=== PATIENT | male | born 1990 | race African-American/Black ===

== ENCOUNTER 2020-09-13 10:32 | Emergency (ER) | payer MEDICARE, OTHER ==
[~2020-09-13] VITALS: Ht 177.8 cm; Wt 72.6 kg
--- NOTE | 2020-09-13 10:32 | NUR ---
PT BIB SELF C/O "I FEEL DEPRESSED AND I NEED A PLACE THAT CAN HELP ME FOR REHABILITAION" PT IS AAOX4, NOT IN RESPIRATORY DISTRESS, V/S STABLE, KEPT RESTED AND COMFORTABLE. WILL CONTINUE TO MONITOR.
--- NOTE | 2020-09-13 10:44 | NUR ---
URINAL GIVEN BUT UNABLE TO PROVIDE URINE SPECIMEN THIS TIME.
--- NOTE | 2020-09-13 10:47 | NUR ---
AT BEDSIDE FOR EVAL.
--- NOTE | 2020-09-13 11:01 | NUR ---
ER PHLEB AT BEDSIDE FOR BLOOD DRAW.
[2020-09-13 11:17] LABS: BASOPHILS % (AUTO) 0.4 % (0.0-2.0); EOSINOPHILS % (AUTO) 0.9 % (0.0-6.0); HEMATOCRIT 38 % (39-51); HEMOGLOBIN 12.7 g/dL (13.5-17.5); LYMPHOCYTES # (AUTO) 1.8 /CMM (0.8-4.8); LYMPHOCYTES % (AUTO) 19.8 % (20.0-44.0); MEAN CORPUSCULAR HGB CONC 34 g/dl (31.0-36.0); MEAN CORPUSCULAR VOLUME 89 fL (80-96); MONOCYTES # (AUTO) 0.7 /CMM (0.1-1.30); NEUTROPHILS # (AUTO) 6.3 /CMM (1.8-8.9); NEUTROPHILS % (AUTO) 70.9 % (43.0-81.0); PLATELET COUNT (AUTO) 429 /CMM (150-450); RED BLOOD CELL COUNT(AUTO) 4.24 MIL/uL (4.5-6.0); WHITE BLOOD COUNT (AUTO) 8.9 K/uL (4.3-11.0)
[2020-09-13 11:32] LABS: ALANINE AMINOTRANSFERASE 24 U/L (12-78); ALBUMIN 3.1 g/dL (3.4-5.0); ALCOHOL, BLOOD < 2 mg/dL (0-0); ALKALINE PHOSPHATASE 84 U/L (46-116); ASPARTATE AMINOTRANSFERASE 21 U/L (15-37); BILIRUBIN,TOTAL 0.1 mg/dL (0.2-1.0); CALCIUM, SERUM 8.5 mg/dL (8.5-10.1); CARBON DIOXIDE 29 mmol/L (21-32); CHLORIDE 102 mmol/L (98-107); CREATININE 0.8 mg/dL (0.6-1.3); GLUCOSE 98 mg/dL (74-106); POTASSIUM 3.6 mmol/L (3.5-5.1); SODIUM SERUM 136 mmol/L (136-145); TOTAL PROTEIN, SERUM 7.7 g/dL (6.4-8.2); UREA NITROGEN, BLOOD 8 mg/dL (7-18)
[2020-09-13 11:33] LABS: ACETAMINOPHEN < 10 ug/ml (10-30)
--- NOTE | 2020-09-13 11:35 | NUR ---
COVID SPECIMEN OBTAINED AND SENT TO LAB.
--- NOTE | 2020-09-13 13:16 | NUR ---
received a call from the lab regarding covid 19 result "negative".
[2020-09-13 15:29] LABS: BILIRUBIN,URINE SMALL (NEGATIVE); COLOR,URINE YELLOW (YELLOW); LEUKOCYTE ESTERASE ,URINE Negative (NEGATIVE); NITRITE, URINE Negative (NEGATIVE); PROTEIN,URINE 30 mg/dl (NEGATIVE); UGLUCOSE Negative (NEGATIVE); UROBILINOGEN,URINE 0.2 EU/dL (0.2)
[2020-09-13 16:15] LABS: BACTERIA,URINE Few /HPF (None Seen); RBC,URINE TOO NUMEROUS TO COUN /HPF (0-2); SQUAMOUS EPITHELIAL CELL,UR Few /HPF (None Seen); WBC,URINE 0-2 /HPF (0-3)
--- NOTE | 2020-09-13 16:19 | NUR ---
SW met with the patient at bedside. Patient presented to [facility] for medical clearance. Patient is a 47-year old male. Patient was asleep when this SW approached, patient remained drowsy however was able to provide this SW with the following information. Patient reports to this SW that he is homeless and has been homeless for year. Patient reports that he came to [facility] ED because he wants to go to [facility]. Patient reports that he is depressed and has been noncompliant for medications. Patient reported that he drink alcohol on occasion and patient denied drug use. However patient labs were positive for Amphetamine and Cannabinoids. Patient unable to provide further information. SW began to discuss voluntary psychiatric hospitalization with this patient and patient was only able to mumble and nod in agreement for a referral to be made on his behalf. SW placed a copy of homeless resources in patient's chart and a copy of homeless patient waiver form for patient to sign when he is more alert and oriented. Plan: SW to refer patient to [facility] intake [phone]. SW remains available for all needs regarding this patient.
--- NOTE | 2020-09-13 16:27 | NUR ---
BRIANDA faxed clinicals for this patient to [facility] per patient's request to [phone] (fax). BRIANDA remains available for all needs regarding this patient.
--- NOTE | 2020-09-13 16:30 | NUR ---
Ronen farris in [facility] - 09/13/20 at 1632 by KRISTEL CALLED TRANSPORT AM DG ETA 20 MINSBert BLANTON
--- NOTE | 2020-09-13 18:29 | NUR ---
PT IS ACCEPTED BY [facility] MATA CALL [phone] UN[address] [place].
--- NOTE | 2020-09-13 18:33 | NUR ---
CALLED TRANSPORT ETA IS 2015 PER TAYLER
--- NOTE | 2020-09-13 18:38 | NUR ---
Report given to bozena ADHIKARI for [facility]
--- NOTE | 2020-09-13 20:02 | NUR ---
REPORT GIVEN TO FACILITY, PT TRANSFERED TO [facility].
--- NOTE | 2020-09-13 20:21 | NUR ---
SPOKE TO INTAKE CJ FROM [facility] THAT THEY RECEIVED PT CHERELLE WOLFF INSTEAD OF VINNIE SEBASTIAN PER PREVIOUS ADMISSION AND PT ADMITS THAT HIS NAME IS CHERELLE WOLFF. PER CJ PT WILL BE SENT BACK TO ER.
--- NOTE | 2020-09-13 20:39 | NUR ---
RECEIVED PT BACK FROM [facility], PT ADMITS THAT HIS REAL NAME IS CHERELLE WOLFF. TRANSPORT NOTIFIED ME WELL THAT THE PT ADMITS TO HIS REAL NAME CHERELLE WOLFF. MAYNOR NAVARRO AT BEDSIDE SPOKE TO PT AND CONFIRMED PT'S REAL NAME.
--- NOTE | 2020-09-13 20:57 | NUR ---
UPDATED FACESHEET AND CLINICAL FAXED TO [facility] FOR VOLUNTARY PSYCH ADMISSION.
--- NOTE | 2020-09-13 22:39 | NUR ---
CALLED [employer] NON EM NUMBER REPORT WAS MADE REGARDING POSSIBLE IDENITY THEFT. THE PT USED A DIFFERENT NAME "EDY SEBASTIAN, 04/17/1973" [employer] WILL BE DISPATCHED.
--- NOTE | 2020-09-13 22:59 | NUR ---
[employer] AT BED SIDE
--- NOTE | 2020-09-13 23:59 | NUR ---
PT ACCEPTED AT [facility] ACCEPTING DR. MATA CALL [phone] FOR REPORT PT WILL GO TO UNIT 2
[2020-09-14 01:15] VITALS: BP 127/79
--- NOTE | 2020-09-14 01:42 | NUR ---
REPORT GIVEN TO JOSE ADHIKARI FOR KAYLIE
--- NOTE | 2020-09-14 02:38 | NUR ---
PT REQUESTED TO LEAVE THE E.D. DENIES SI AND HI. VSS. HERNANDEZ AWARE.
== END 2020-09-13 20:04 | disposition home or self-care (01) ==
LOC: ER 10:37 → EDBD 10:37 → ER 20:04
DX: T65.91XA Toxic effect of unspecified substance, accidental (unintentional), initial encounter (principal); R41.82 Altered mental status, unspecified; Y92.89 Other specified places as the place of occurrence of the external cause; F15.10 Other stimulant abuse, uncomplicated; Z20.822 Contact with and (suspected) exposure to COVID-19
CPT/HCPCS: 36415; 80048-TC; 80076-TC; 81001; 85025-TC; C9803; G0480